=== PATIENT | female | born 1940 | race Caucasian/White ===

== ENCOUNTER 2017-04-19 13:30 | Outpatient (CLI) | payer BC | END 2017-04-19 19:40 | disposition home or self-care (01) | LOC: SMA 13:30 | PROVIDERS: ATTEND Family Medicine | DX: Z12.31 Encounter for screening mammogram for malignant neoplasm of breast (principal) | CPT/HCPCS: 77067 ==

== ENCOUNTER 2018-09-05 10:07 | Outpatient (CLI) | payer BC | END 2018-09-05 20:05 | disposition home or self-care (01) | LOC: SMA 10:07 | PROVIDERS: ATTEND Family Medicine | DX: Z12.31 Encounter for screening mammogram for malignant neoplasm of breast (principal) | CPT/HCPCS: 77067 ==

== ENCOUNTER 2019-09-08 12:55 | Outpatient (CLI) | payer BC | END 2019-09-08 20:52 | disposition home or self-care (01) | LOC: SMA 12:55 | PROVIDERS: ATTEND Family Medicine | DX: Z12.31 Encounter for screening mammogram for malignant neoplasm of breast (principal) | CPT/HCPCS: 77067 ==